=== PATIENT | male | born 1935 | race Caucasian/White ===

== ENCOUNTER 2019-01-13 16:59 | Observation (INO) | payer MEDICARE, OTHER ==
[~2019-01-13] VITALS: Ht 172.7 cm; Wt 68.2 kg
[~2019-01-13 16:59] MED LIST: Z.0.LASIX20 MG; Z.0.VASOTEC20 MG
--- NOTE | 2019-01-13 18:33 | Diagnostic Imaging Report ---
CT BRAIN WO HISTORY: Fall COMPARISON: Report from head CT dated 07/08/2015 (images not available at time of dictation) Technique: Noncontrast axial scans were obtained from skull base to the vertex. Coronal and sagittal reconstructions obtained from the axial data. One or more of the following dose reduction techniques were used: Automated exposure control, adjustment of the mA and/or kV according to patient size, and/or utilization of iterative reconstruction technique. DISCUSSION: Scalp/Skull: Unremarkable. Brain sulci: Mildly prominent. Ventricles: Compensatory dilatation. Extra-axial spaces: No masses or fluid collections. Carotid and vertebral artery calcifications are present. Parenchyma: Mild bilateral deep white matter hypodensity is likely chronic microvascular ischemic change. 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 Otherwise, no masses, hemorrhage, or large vascular territory acute infarct. Dural sinuses: No abnormal densities. Sellar/Suprasellar region: Intact. Skull base: Intact. Incidental findings: Mild scattered paranasal sinus mucosal thickening is partially visualized. Both ocular lenses are thinned. IMPRESSION: 1. No acute intracranial abnormalities. 2. Mild supratentorial chronic microvascular ischemic change. Mild generalized cerebral volume loss. Signed by: Dr. Edward Flowers M.D. on 01/13/2019 6:30 PM
--- NOTE | 2019-01-13 18:41 | Diagnostic Imaging Report ---
CT CERVICAL SPINE WO HISTORY: Fall COMPARISON: Concurrent head CT TECHNIQUE: CT of the cervical spine without contrast. Sagittal and coronal reformations were created. One or more of the following dose reduction techniques were used: Automated exposure control, adjustment of the mA and/or kV according to patient size, and/or utilization of iterative reconstruction technique. FINDINGS: Mild bone demineralization limits evaluation. Cervical lordosis is straightened. Thoracic dextroscoliosis is partially visualized. No definite acute fracture or compression deformity is seen. The craniocervical junction is intact. No gross spinal canal masses are seen. The paravertebral and paraspinal soft tissues are unremarkable. Multilevel spondylosis is advanced at C5-C6 and C6-C7. The C3 and C4 vertebral bodies are fused. Prominent multilevel bilateral facet arthrosis is also present. There is associated minimal grade 1 anterolisthesis of C4 on C5, C6 on C7, C7 on T1. Prominent bilateral carotid bulb calcifications are present. There is a small partially calcified left thyroid nodule. IMPRESSION: 1. No acute osseous abnormalities. 2. Multilevel spondylosis, advanced at C5-C6 and C6-C7. 3. Prominent multilevel bilateral facet arthrosis. Associated minimal grade 1 anterolisthesis of C4 on C5, C6 on C7, and C7 on T1. Signed by: Dr. Edward Flowers M.D. on 01/13/2019 6:38 PM
[2019-01-13 18:46] LABS: BASOPHILS % 0.5 % (0.0-1.0); EOSINOPHILS # (AUTO) 0.2 (0.0-0.4); EOSINOPHILS % 3.5 % (0.0-6.0); HEMATOCRIT 42.1 % (38.2-49.6); HEMOGLOBIN 14.2 g/dL (14.0-18.0); LYMPHOCYTES # (AUTO) 1.8 (1.0-3.2); LYMPHOCYTES % 30.7 % (18.0-39.1); MEAN CORPUSCULAR HEMOGLOBIN 32.3 pg (28-32); MEAN CORPUSCULAR HGB CONC 33.7 g/dL (31-35); MEAN CORPUSCULAR VOLUME 95.7 fL (81-99); MONOCYTES # (AUTO) 0.7 (0.2-0.8); MONOCYTES % 11.1 % (4.4-11.3); NEUTROPHILS # (AUTO) 3.2 (2.1-6.9); NEUTROPHILS % 53.9 % (38.7-80.0); PLATELET COUNT 193 x10e3/uL (140-360); RED CELL DISTRIBUTION WIDTH 12.6 % (11.7-14.4)
[2019-01-13 18:56] LABS: INR 1.08; PROTHROMBIN TIME 14.5 seconds (11.9-14.5)
[2019-01-13 18:57] LABS: PARTIAL THROMBOPLASTIN TIME 36.2 seconds (23.8-35.5)
--- NOTE | 2019-01-13 19:02 | Diagnostic Imaging Report ---
EXAMINATION: CHEST SINGLE (PORTABLE) INDICATION: ^ERMD ORDER ^[id number] ^1745 ^Y COMPARISON: None FINDINGS: AP view TUBES and LINES: None. LUNGS: Lungs are well inflated. Central vascular congestion and mild interstitial edema. PLEURA: No pleural effusion or pneumothorax. HEART AND MEDIASTINUM: The cardiomediastinal silhouette is unremarkable. Aorta is calcified and mildly tortuous. BONES AND SOFT TISSUES: No acute osseous lesion. Soft tissues are unremarkable. UPPER ABDOMEN: No free air under the diaphragm. IMPRESSION: Central vascular congestion and mild interstitial edema. Signed by: Dr. Warner Galeano MD on 01/13/2019 6:59 PM
[2019-01-13 19:04] LABS: ALBUMIN 2.9 g/dL (3.5-5.0); ALBUMIN/GLOBULIN RATIO 0.7 (0.8-2.0); ANION GAP 12.7 mmol/L (8-16); CALCIUM 7.8 mg/dL (8.4-10.2); CREATININE, SERUM 1.17 mg/dL (0.72-1.25); POTASSIUM 3.7 mmol/L (3.5-5.1)
[2019-01-13 19:12] LABS: CREATINE KINASE MB 1.1 ng/mL (0-5.0)
[2019-01-13 19:42] LABS: EOSINOPHILS % (MANUAL) 3 % (0-7); LYMPHOCYTES % (MANUAL) 29 % (19-48); MONOCYTES % (MANUAL) 12 % (3.4-9.0); NEUTROPHILS % (MANUAL) 50 % (40-74); RBC MORPHOLOGY COMMENT NORMAL
[2019-01-13 19:43] LABS: PLATELET ESTIMATE ADEQUATE; PLATELET MORPHOLOGY COMMENT NORMAL
--- OUTSIDE RECORDS SUMMARY | 2019-01-13 20:57 | XMS REPORT ---
Author Author [facility] Address Unknown Phone Unavailable Care Team Providers Care Document Improvement Specialist Name Role Phone Carmen COLES Unavailable Unavailable Problems This patient has no known problems. Allergies, Adverse Reactions, Alerts This patient has no known allergies or adverse reactions. Medications This patient has no known medications. Results Test Description Test Time Test Comments Text Results Atomic Results Result Comments CHEST SINGLE (PORTABLE) 2019-01-13 18:58:00 [place] [address] Patient Name: AIDAN GILL MR #: [id number] : 1935 Age/Sex: 83/M Req #: [id number] Adm Physician: Ordered by: COLLEEN FREEMAN STRATEGY LEAD Report #: [id number] Location: ER Room/Bed: Procedure: [id number] DX/CHEST SINGLE (PORTABLE) Exam Date: 01/13/19 Exam Time: 1745 REPORT STATUS: Signed EXAMINATION: CHEST SINGLE (PORTABLE) IN DICATION: ERMD ORDER [id number] 1745 Y COMPARISON: None FINDINGS: AP view TUBES and LINES: None. LUNGS: Lungs are well inflated. Central vascular congestion and mild interstitial edema. PLEURA: No pleural effusion or pneumothorax. HEART AND MEDIASTINUM: The cardiomediastinal silhouette is unremarkable. Aorta is calcified and mild ly tortuous. BONES AND SOFT TISSUES: No acute osseous lesion. Soft tissues are unremarkable. UPPER ABDOMEN: No free air under the diaphragm. IMPRESSION: Central vascular congestion and mild interstitial edema. Signed by: Dr. Warner Fajardo MD on 01/13/2019 6:59 PM Dictated By: WARNER FAJARDO MD 58 Transcribed By: SALVADOR on 01/13/191858 COPY TO: COLLEEN FREEMAN STRATEGY LEAD CT CERVICAL SPINE WO 2019-01-13 18:30:00 [place] [address] Patient Name: AIDAN GILL MR #: [id number] : 1935 Age/Sex: 83/M Req #: [id number] Adm Physician: Ordered by: COLLEEN FREEMAN NP Report #: [id number] Location: ER Room/Bed: Procedure: [id number] CT/CT CERVICAL SPINE WO Exam Date: 01/13/19 Exam Time: 1745 REPORT STATUS: Signed CT CERVICAL SPINE WO HISTORY: Fall COMPARI SON: Concurrent head CT TECHNIQUE: CT of the cervical spine without contrast. Sagittal and coronal reformations were created. One or more of the following dose reduction techniques were used: Automated exposure control, adjustment of the mA and/or kV according to patient size, and/or utilization of iterative reconstruction technique. FINDINGS: Mild bone demineralization limits evaluation. Cervical lordosis is straightened. Thoracic dextroscoliosis is partially visualized. No definite acute fracture or compression deformity is seen. The craniocervical junction is intact. No gross spinal canal masses are seen. The paravertebral and paraspinal soft tissues are unremarkable. Multilevel spondylosis is advanced at C5-C6 and C6-C7. The C3 and C4 vertebral bodies are fused. Prominent multilevel bilateral facet arthrosis is also present. There is associated minimal grade 1 anterolisthesis of C4 on C5, C6 on C7, C7 on T1. Prominent bilateral carotid bulb calcifications are present. There is a small partially calcified left thyroid nodule. IMPRESSION: 1. No acute osseous abnormalities. 2. Multilevel spondylosis, advanced at C5-C6 and C6- C7. 3. Prominent multilevel bilateral facet arthrosis. Associated minimal grade 1 anterolisthesis of C4 on C5, C6 on C7, and C7 on T1. Signed by: Dr. Edward Flowers M.D. on 01/13/2019 6:38 PM Dictated By: EDWARD FLOWERS MD 37 Transcribed By: SALVADOR on 01/13/191837 COPY TO: COLLEEN FREEMAN NP CT BRAIN WO 2019-01-13 18:25:00 [place] [address] Patient Name: AIDAN GILL MR #: [id number] : 1935 Age/Sex: 83/M Req #: [id number] Adm Physician: Ordered by: COLLEEN FREEMAN STRATEGY LEAD Report #: [id number] Location: ER Room/Bed: Procedure: [id number] CT/CT BRAIN WO Exam Date: 01/13/19 Exam Time: 1745 REPORT STATUS: Signed CT BRAIN WO HISTORY: Fall COMPARISON: Report from head CT dated 07/08/2015 (images not available at time of dictation) Technique: Noncontrast axial scans were obtained from skull base to the vertex. Coronal and sagittal reconstructions obtained from the axial data. One or more of the following dose reduction techniques were used: Automated exposure control, adjustment of the mA and/or kV according to patient size, and/or utilization of iterative reconstruction technique. DISCUSSION: Scalp/Skull: Unremarkable. Brain sulci: Mildly prominent. Ventricles: Compensatory dilatation. Extra-axial spaces: No masses or fluid collections. Carotid and vertebral artery calcifications are present. Parenchyma: Mild bilateral deep white matter hypodensity is likely chronic microvascular ischemic change. 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 Otherwise, no masses, hemorrhage, or large vascular territory acute infarct. Dural sinuses: No abnormal densities. Sellar/Suprasellar region: Intact. Skull base: Intact. Incidental findings: Mild scattered paranasal sinus mucosal thickening is partially visualized. Both ocular lenses are thinned. IMPRESSION: 1. No acute intracranial abnormalities. 2. Mild supratentorial chronic microvascular ischemic change. Mild generalized cerebral volume loss. Signed by: Dr. Edward Flowers M.D. on 01/13/2019 6:30 PM Dictated By: EDWARD FLOWERS MD 29 Transcribed By: SALVADOR on 01/13/191829 COPY TO: COLLEEN FREEMAN NP
[2019-01-13 21:56] VITALS: BP 191/77
--- NOTE | 2019-01-13 21:56 | NUR ---
Received patient from the Emergency Room via stretcher accompanied by his son and E.R. staff. Patient is alert with confusion. Can ambulate and transfer with supervision. Patient was made comfortable in bed. Oriented to the room. side rails up. Bed alarm on. Call light within reached.
[2019-01-13] MEDS ORDERED: FLUDROCORTISON0.1 MG PO (22:13)
[2019-01-13] MEDS ORDERED: NAMENDA10 MG PO (22:13)
[2019-01-13] MEDS ORDERED: POTASSIUM CHLO10 ME1 PO (22:13)
[2019-01-13] MEDS ORDERED: EXELON1 EAC1 TD (22:13)
[2019-01-14] VITALS (11 sets, daily range): BP systolic 134–191; BP diastolic 62–82
[2019-01-14] MEDS ORDERED: ASPIR 8181 MG PO (08:09)
[2019-01-14] MEDS ORDERED: CENTRUM COMPLE1 EACH PO (08:10)
[2019-01-14] MEDS ORDERED: FOLIC ACID1 MG PO (08:10)
[2019-01-14] MEDS ORDERED: METAMUCIL FIBE3.4 GM PO (08:10)
[2019-01-14 10:39] LABS: CLARITY,URINE HAZY (CLEAR); COLOR,URINE YELLOW (YELLOW)
[2019-01-14 10:40] LABS: BILIRUBIN,URINE NEGATIVE (NEGATIVE); KETONES,URINE 2+ (NEGATIVE); LEUKOCYTE ESTERASE ,URINE NEGATIVE (NEGATIVE); NITRITE,URINE NEGATIVE (NEGATIVE); PROTEIN,URINE DIPSTICK 1+ (NEGATIVE); URINE UROBILINOGEN 0.2 mg/dL (0.2 - 1)
[2019-01-14 10:41] LABS: BACTERIA,URINE FEW /HPF; EPITHELIAL CELLS,URINE FEW /LPF; WBC,URINE (MAN) 0-5 /HPF (0-5)
--- NOTE | 2019-01-14 10:48 | NUR ---
NOTIFIED BY SON, SUSAN THAT HE ADMINISTERED NAMENDA, POTASSIUM, AND EXELON PATCH TO PT THOSE ARE HIS REGULAR HOME MEDICATIONS.
[2019-01-14] MEDS ORDERED: ONDANSETRON HCL INJ 2MG/ML 2ML 2 MG/ML VIAL IV PRN (12:15)
[2019-01-14] MEDS ORDERED: ACETAMINOPHEN 325 MG TAB PO PRN (12:15)
--- NOTE | 2019-01-14 13:00 | NUR ---
SPOKE TO DR. GEORGE NOTIFIED REGARDING NEW CONSULT.
--- NOTE | 2019-01-14 13:12 | NUR ---
NOTIFIED DR. CHAVARRIA OF [facility] WILL SEE PT LATER TODAY.
[2019-01-14 15:33] LABS: BASOPHILS % 0.4 % (0.0-1.0); EOSINOPHILS # (AUTO) 0.1 (0.0-0.4); EOSINOPHILS % 2.1 % (0.0-6.0); HEMATOCRIT 39.2 % (38.2-49.6); HEMOGLOBIN 13.2 g/dL (14.0-18.0); LYMPHOCYTES # (AUTO) 1.4 (1.0-3.2); LYMPHOCYTES % 24.5 % (18.0-39.1); MEAN CORPUSCULAR HEMOGLOBIN 31.7 pg (28-32); MEAN CORPUSCULAR HGB CONC 33.7 g/dL (31-35); MEAN CORPUSCULAR VOLUME 94.2 fL (81-99); MONOCYTES # (AUTO) 0.4 (0.2-0.8); MONOCYTES % 7.3 % (4.4-11.3); NEUTROPHILS # (AUTO) 3.7 (2.1-6.9); NEUTROPHILS % 65.5 % (38.7-80.0); PLATELET COUNT 205 x10e3/uL (140-360); RED BLOOD COUNT 4.16 x10e6/uL (4.3-5.7); RED CELL DISTRIBUTION WIDTH 12.3 % (11.7-14.4)
--- NOTE | 2019-01-14 15:36 | Consultation ---
DATE OF CONSULTATION: Cardiology Consultation CONSULTING PHYSICIAN: Dr. Jordan. REASON FOR CONSULTATION: Syncope. 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 However, has stage 5 Alzheimer and is not able to provide most of the medical information; however per the son, has been feeling well up until two weeks ago where he experienced his first syncope episode, syncope episode occurred while standing. However, he could tell his care provider that he does not feel well prior to the syncope episode. For this reason, he was seen by his PCP. PCP initiated Florinef at 0.1 mg daily and continued to take that medication for about a week. However, had subsequent hypertension secondary to the medication. For that reason, he was asked to cut the medication in half. After starting half of the Florinef, he experienced two syncope episodes about 12 hours later. These two syncope episodes are reported to be both while he was standing, one of the more recently while he was in the restroom. He has no complaints at this time moment. He states he feels well and he just knows he is at the hospital. He is not able to provide reliable medical information. PAST FAMILY HISTORY: Per son, positive for type 1 diabetes mellitus. PAST MEDICAL HISTORY: Alzheimer. REVIEW OF SYSTEMS: Negative except as mentioned above. PHYSICAL EXAMINATION: VITAL SIGNS: Temperature 96.5, pulse 63, respiratory rate 20, blood pressure 142/64, oxygen saturation 95% on room air. GENERAL: Alert and oriented x1, resting comfortably in bed. Does not appear to be in any acute distress. NECK: Supple. No carotid bruits auscultated. No JVD. LUNGS: Clear to auscultation throughout. No wheezing. No rhonchi or crackles. CARDIOVASCULAR: Regular rate and rhythm. Normal S1, S2. No gallops. No murmurs. ABDOMEN: Soft, nontender. LOWER EXTREMITIES: No edema. CARDIOVASCULAR MEDICATIONS: 30 mg of Lovenox subcu daily, aspirin 81 mg p.o. daily. LABORATORY DATA: From yesterday; WBC 5.93, hemoglobin 14.2, hematocrit 42.2, platelets 193. Sodium 141, potassium 3.7, BUN 19, creatinine 1.17. AST 30, ALT 16, alkaline phosphatase 44, BNP 126.7, INR 1.08, PT 14.5, PTT 36.2. Chest x-ray on admission with central vascular congestion and mild interstitial edema noted. Brain CT with no acute intracranial abnormalities. Mild supratentorial chronic microvascular ischemic change, mild generalized cerebral volume loss. TELEMETRY: Sinus rhythm. IMPRESSION: 1. Vasovagal syncope. 2. Hypotension. 3. Alzheimer. RECOMMENDATION: Obtain echocardiogram and carotid Doppler. Also check thyroid function. The patient may need ambulatory telemetry monitoring. For now, keep in bed. Continue the above-listed cardiac medications. Fluid consumption 2 to 3 L daily. We will monitor this patient very closely. Thank you for this consultation, Dr. Jordan. Dictated by Mary Stewart, JALEN Sampson Montez MD J[facility]/DUANE /[id number]
[2019-01-14 15:52] LABS: ANION GAP 12.6 mmol/L (8-16); BLOOD UREA NITROGEN 19 mg/dL (7-26); BUN/CREATININE RATIO 19 (6-25); CALCIUM 7.6 mg/dL (8.4-10.2); CARBON DIOXIDE 25 mmol/L (22-29); CHLORIDE 106 mmol/L (98-107); EST GLOMERULAR FILTRATION RATE > 60 ML/MIN (60-); GLUCOSE 123 mg/dL (74-118); POTASSIUM 3.6 mmol/L (3.5-5.1); SODIUM 140 mmol/L (136-145)
[2019-01-14] MEDS: ENOXAPARIN 30 MG/0.3 ML SYR SC SCH (16:33)
[2019-01-14] MEDS: MEMANTINE 10 MG TAB PO SCH (16:33)
[2019-01-14] MEDS: SODIUM CHLORIDE 0.9% 1000ML 1,000 ML IV SCH (18:53)
--- NOTE | 2019-01-14 19:43 | NUR ---
Received change of shift report from AM nurse. Rounds completed. Patient in bed in sitting position with no c/o at this time.
--- NOTE | 2019-01-14 19:47 | History and Physical ---
CHIEF COMPLAINT: Syncopal episodes. HISTORY OF PRESENT ILLNESS: An 83-year-old male with known history of Alzheimer's dementia and questionable orthostatic hypotension, who was just recently diagnosed with acute bronchitis being treated with IV Rocephin and antibiotics, presents now to the ED with a syncopal episode that has been ongoing over the last several days. The patient's son is at bedside and full history was given by the son. According to the son, approximately like a week ago, the father was getting up, walking and then he passed out, at that time fell over and lost consciousness for about 16 seconds according to the son. No prodromal effects of slurred speech, facial droop, weakness anywhere, no palpitations or any chest wound has occurred. At that time, they talked to the primary care doctor, thought it was orthostatic in nature and was started on Florinef. The patient also had another episode of syncopal episode yesterday, in which he passed out and lost consciousness again, that lasted from another 15-20 seconds, again no prodromal effects prior to this occurring and came to the ER for further evaluation and management. No reports of any recent sickness, cough, congestion. He was treated for acute bronchitis according to the family at bedside by his PCP. The patient seen and evaluated at bedside on the Medical floor, currently doing well with no complaints. His vital signs were stable when I evaluated him. REVIEW OF SYSTEMS: Pertinent positives: Syncopal episode, loss of consciousness. Pertinent negatives: Denies any chest pain, palpitation, nausea, vomiting, diarrhea, dysuria, hematuria, frequency, urgency, lightheadedness, dizziness, abdominal pain, headaches, shortness of breath, cough, congestion, fever, or any other complaints. The rest of the 14-point review of systems have been reviewed with the patient and are negative. ALLERGIES: CODEINE, HYDROCODONE, MIRTAZAPINE. HOME MEDICATIONS: Aspirin 81 mg daily, Florinef 0.1 mg daily, folic acid 1 mg daily, Namenda 10 mg p.o. b.i.d., potassium supplement, Exelon 13.3 mg one patch daily. PAST MEDICAL HISTORY: Alzheimer's dementia, questionable orthostatic hypotension in the past. SURGICAL HISTORY: Reports none. FAMILY HISTORY: Hypertension. SOCIAL HISTORY: No drugs. No alcohol. Does not smoke. Good social support, his son was at bedside. PHYSICAL EXAMINATION: VITAL SIGNS: Temperature 96.5, pulse is 63, respiratory rate is 20, blood pressure is 142/64, pulse ox 95% on room air. GENERAL: Not in acute distress. Alert and oriented x3. Cooperative on examination. HEENT: Head is normocephalic and atraumatic. Eyes; pupils are equal, round, and reactive to light bilaterally. Extraocular movements are intact bilaterally. Throat, no evidence of erythema or exudates in the posterior pharynx. Has poor dentition. NECK: Supple. Good range of motion. PULMONARY: Clear to auscultation bilaterally. No wheezing, no rales, no rhonchi, no crackles appreciated. CARDIOVASCULAR: Positive S1, S2. No murmurs, rubs, or gallops appreciated. ABDOMEN: Soft, nondistended, and nontender to palpation. Bowel sounds present. MUSCULOSKELETAL: Strength is 5/5 throughout. No evidence of any muscle deficits on examination. No weakness appreciated. NEUROLOGICAL: Cranial nerves II through XII grossly intact. No evidence of any neurological deficits on exam. SKIN: Intact. Warm to touch. Good cap refill. PSYCHIATRIC: Normal affect and mood. EXTREMITIES: No edema. Good range of motion throughout LABORATORY DATA: Labs show white count 5.9, hemoglobin 14, hematocrit of 42, platelets of 193. Coagulation; PT 14, INR 1, PTT 36.2. Chemistry; sodium 141, potassium 3.7, chloride is 106, bicarb 26, anion gap is 12, BUN is 19, creatinine 1.1, glucose 93, calcium 7.8. Total bilirubin is 0.7, AST 30, ALT 16, alkaline phosphatase 44. Troponin is 0.010. BNP 126. Albumin 2.9. Urinalysis; 2+ blood, 2+ ketones, 1+ protein, 11-20 rbc's, no wbc's, no leukocyte esterase, no nitrites. Urine cultures are pending. IMAGING STUDIES: Chest x-ray shows some central vascular congestion, mild interstitial edema. CT cervical spine shows no acute findings. Shows evidence of osteoarthritis, multilevel. CT brain, no acute intracranial abnormalities. IMPRESSION: 1. Syncopal episode. 2. History of orthostatic hypotension. 3. Alzheimer's dementia. PLAN: At this time, I will go ahead and order a 2D echo and carotid ultrasound to be read by Cardiology. Cardiology has been consulted as well. Continue cardiac telemetry. Also consult with Neurology. Carotid ultrasound, MRI of the brain has been ordered as well. a.m. labs. We will also get orthostatic blood pressure readings as well. Resume same home medications. Put on Lovenox for DVT prophylaxis. We will also get a.m. labs. I discussed plan of care with son at bedside including patient with nursing staff. MD KATELYNN Brasher/MODL /[id number]
--- NOTE | 2019-01-14 22:13 | NUR ---
Received report from Christina pablo [facility] ER. #[phone]. Addendum: 01/14/19 at 2305 by Briana Webb RN error wrong patient
--- NOTE | 2019-01-14 22:38 | NUR ---
Patient arrived to floor via stretcher. Addendum: 01/14/19 at 2305 by Briana Webb RN error wrong patient
--- NOTE | 2019-01-14 22:41 | Consultation ---
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 At approximately 0300 hours on January 13, 2019, the patient was using the restroom with the aid of his . While washing his hands, Dr. Neff was observed to have shaking in his arms and legs. The patient then lost consciousness. Dr. Neff fell to the ground, hitting his head on a wooden door frame. While on the ground, there was no stiffening or shaking of the arms and legs. There was no tongue biting. The patient's does endorse both bladder and bowel incontinence. The duration of unconsciousness lasted for approximately 30 seconds. According to the , as soon as she lifted the patient's legs in the air, the patient regained consciousness. When he regained consciousness, Dr. Neff recognized his as well as his bathroom, but was uncertain as to why he was lying on the floor. Prior to the event described above, Dr. Neff reported possible dizziness, which is further described as a lightheaded sensation. Otherwise, he does not recall experiencing chest pain or tightness, palpitations, shortness of breath, numbness or tingling, or an epigastric rising sensation. According to the patient's , Dr. Neff experienced similar symptoms approximately 2 weeks ago. On the advice of his primary care physician, Dr. Neff presented to the Emergency Center at [facility] on the evening of January 13, 2019, for further evaluation of his symptoms. Upon arrival in the emergency room, the patient was afebrile with a blood pressure of 142/70 mmHg and a pulse of 71 beats per minute. His neurological examination was significant for altered mental status. However, the patient's family reported Dr. Neff was at his cognitive baseline. No other deficits were noted. While in the Emergency Center, the patient underwent a CT of the brain without contrast, which did not reveal evidence of recent large territorial ischemia or hemorrhage. Dr. Neff was admitted to [facility] under observation status for further evaluation and treatment of his symptoms. There is no known history of febrile or other seizures. There is no known family history of seizures. There is no known prior head trauma or meningitis/encephalitis. REVIEW OF SYSTEMS: Syncope versus seizure, dizziness, which is further described as lightheadedness, otherwise a 12-point review of systems is negative. PAST MEDICAL HISTORY: Hypotension, dementia, presumably of the Alzheimer's type. PAST SURGICAL HISTORY: Bilateral cataract removal. PAST HOSPITALIZATIONS: None. FAMILY MEDICAL HISTORY: The patient's paternal and maternal grandparents are . Their medical histories are unknown. The patient's father is . He in his sleep, cause unknown. Dr. Neff' mother had diabetes mellitus. The patient has 1 sibling, a sister, who is alive and has Alzheimer's disease as well. Dr. Neff has 2 sons, both of whom are alive and healthy. SOCIAL HISTORY: Dr. Neff is and lives with his . 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 There is no reported current or prior tobacco, alcohol, or recreational drug use. HOME MEDICATIONS: 1. Aspirin 81 mg by mouth daily. 2. Fludrocortisone 0.1 mg one-half tablet by mouth daily. 3. Folic acid 1 mg by mouth daily. 4. Memantine 10 mg by mouth twice daily. 5. Multivitamin 1 tablet by mouth daily. 6. Potassium chloride 10 mEq by mouth daily. 7. Metamucil 1 packet by mouth daily. 8. Rivastigmine 13.3 mg patch applied topically daily. ALLERGIES: CODEINE, HYDROCODONE, MIRTAZAPINE. NO KNOWN FOOD ALLERGIES. NO KNOWN ALLERGIES TO LATEX. NO KNOWN ALLERGIES TO IODINE OR OTHER CONTRAST MATERIALS. PHYSICAL EXAMINATION: VITAL SIGNS: Height 68 inches, weight 144 pounds, BMI 21.9 kg/m2, blood pressure 142/64 mmHg, pulse 63 beats per minute, respiratory rate 20 breaths per minute, oxygen saturation 95% on room air. GENERAL: The patient is awake and alert, does not appear distress. HEENT: Normocephalic, atraumatic. Pupils are surgical. Moist mucous membranes. NECK: Supple. No appreciable thyromegaly. No appreciable carotid bruits. CARDIOVASCULAR: S1 and S2, regular rate and rhythm. No murmurs, rubs, or gallops. RESPIRATORY: Clear to auscultation bilaterally. No wheezes, rhonchi, or rales. EXTREMITIES: The skin is warm and dry. No clubbing, cyanosis, or edema. The posterior tibial and dorsalis pedis pulses are 1+ and symmetric. SKIN: No rashes or lesions. NEUROLOGIC: Memory/Attention: The patient is awake and alert, oriented to person only. Cranial nerves: Cranial nerve I - not tested. Cranial nerve II, III, IV, and - pupils are surgical. Extraocular movements intact. No nystagmus. Cranial nerve V - sensation to light touch is intact in the bilateral V1 through V3 distributions. Strength in the temporalis and masseter muscles is within normal limits. Cranial nerve VII - the face is symmetric as are all facial movements. Strength is within normal limits. Cranial nerve VIII - hearing is diminished to finger rub bilaterally. Cranial nerve IX, X - the soft palate elevates equally and symmetrically. Cranial nerve XI - normal strength of the bilateral sternocleidomastoid and trapezius muscles. Cranial nerve XII - the tongue protrudes midline and moves symmetrically from [id number]. Strength: Bulk is diminished throughout. Dr. Neff has difficulty participating in a formal assessment of strength. He moves all extremities equally and symmetrically. Strength is grossly 4/5 at least. Tone is normal. DTRs: Deep tendon reflexes are 1+ and symmetric at the triceps, biceps, brachioradialis, and patellas. Deep tendon reflexes are absent and symmetric at the Achilles. Plantar responses are flexor bilaterally. Sensation: Sensation is intact to light touch in both arms and both legs. Cerebellar: Unable to assess secondary to the patient not understanding the instructions for [id number] and heel-hamilton movements. Gait: Deferred. Speech: Spontaneous speech is mildly dysarthric without aphasia. Repetition is intact. Involuntary Movements: None. Pronator Drift: None. LABORATORY DATA: A comprehensive metabolic panel is significant for an estimated GFR of 59, calcium is 78, albumin of 2.9, and globulin of 4.0. B-natriuretic peptide 126.7. The CBC with differential and platelets is unremarkable. PT 14.5, INR 1.08, PTT 36.2. The urinalysis revealed hazy urine with 1+ protein, 2+ ketones, 2+ blood, 11 to 20 red blood cells. A urine culture is pending. DIAGNOSTIC STUDIES: 1. Electrocardiogram, 01/13/2019: Normal sinus rhythm at 62 beats per minute. 2. Chest x-ray, 01/13/2019: Central vascular congestion and mild interstitial edema. 3. CT of the cervical spine, 01/13/2019: No acute osseous abnormalities. Multilevel spondylosis, advanced at C5-C6 and C6-C7. Prominent multilevel bilateral facet arthrosis. Associated minimal grade 1 anterolisthesis of C4 on C5, C6 on C7, and C7 on T1. 4. CT of the brain without contrast, 01/13/2019: On my review, there is no evidence of recent large territorial ischemia, hemorrhage, mass, or mass effect. 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 There is diffuse cerebral atrophy with compensatory dilatation of the ventricles, appropriate for the patient's age. Their findings compatible with [id number]-[id number] chronic small-vessel ischemic disease. 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 Other than cognitive deficits, the patient's neurological examination is nonfocal. His laboratory data and other diagnostic studies have been reviewed and are documented above. There are elements of the patient's history, which raise concerns for seizure. Those include: Shaking of the arms prior to loss of consciousness, duration of loss of consciousness, bladder and bowel incontinence associated with loss of consciousness. Due to these elements of the patient's history, further evaluation will be ordered as follows: 1. For seizures, an MRI of the brain without contrast will be ordered to evaluate for structural anomalies, which may give rise to seizures. A routine EEG will be ordered to evaluate for abnormal electrical activity, which may give rise to seizures. 2. For dementia, treatment with the patient's home medications of Rivastigmine 9.5 mg per 24-hour patch, apply one patch topically daily and memantine 10 mg by mouth twice daily will be continued. 3. Defer treatment of the remaining medical comorbidities to the primary and other services following the patient. Thank you for this consultation. I will continue to follow the patient while he remains in the hospital. TIME SPENT: 50 minutes. Violeta Cross MD CP/MODL /[id number] MTDD
[2019-01-15] VITALS (8 sets, daily range): BP systolic 139–186; BP diastolic 72–83
--- NOTE | 2019-01-15 | NUR ---
Patient denies pain at this time. AAOx1-2 with period of forgetfullness. Patient up out of bed to the restroom. Pt insist on walking to the bathroom. Assissted to bathroom. Son at the bedside.
[2019-01-15] MEDS: SODIUM CHLORIDE 0.9% 1000ML 1,000 ML IV SCH ×2 (05:04→21:46)
[2019-01-15 05:46] LABS: BASOPHILS % 0.5 % (0.0-1.0); EOSINOPHILS # (AUTO) 0.3 (0.0-0.4); EOSINOPHILS % 4.9 % (0.0-6.0); HEMOGLOBIN 12.7 g/dL (14.0-18.0); LYMPHOCYTES # (AUTO) 1.8 (1.0-3.2); LYMPHOCYTES % 32.4 % (18.0-39.1); MEAN CORPUSCULAR HEMOGLOBIN 31.4 pg (28-32); MEAN CORPUSCULAR HGB CONC 33.4 g/dL (31-35); MEAN CORPUSCULAR VOLUME 93.8 fL (81-99); MONOCYTES # (AUTO) 0.5 (0.2-0.8); MONOCYTES % 8.9 % (4.4-11.3); NEUTROPHILS # (AUTO) 2.9 (2.1-6.9); NEUTROPHILS % 53.1 % (38.7-80.0); PLATELET COUNT 199 x10e3/uL (140-360); RED BLOOD COUNT 4.05 x10e6/uL (4.3-5.7); RED CELL DISTRIBUTION WIDTH 12.3 % (11.7-14.4)
--- NOTE | 2019-01-15 05:56 | NUR ---
Patient in bed with no c/o at this time. Continue monitor.
[2019-01-15 06:09] LABS: ANION GAP 11.5 mmol/L (8-16); BLOOD UREA NITROGEN 15 mg/dL (7-26); BUN/CREATININE RATIO 16 (6-25); CALCIUM 7.3 mg/dL (8.4-10.2); CARBON DIOXIDE 24 mmol/L (22-29); CHLORIDE 110 mmol/L (98-107); CREATININE, SERUM 0.91 mg/dL (0.72-1.25); EST GLOMERULAR FILTRATION RATE > 60 ML/MIN (60-); GLUCOSE 82 mg/dL (74-118); POTASSIUM 3.5 mmol/L (3.5-5.1); SODIUM 142 mmol/L (136-145)
[2019-01-15] MEDS: RIVASTIGMINE TRANSDERMAL 9.5MG/24HOURS PATCH TD SCH ×2 (09:00→16:00)
[2019-01-15] MEDS ORDERED: FLUDROCORTISONE ACETATE 0.1 MG TAB PO SCH (09:00)
[2019-01-15] MEDS: FOLIC ACID 1 MG TAB PO SCH (09:21)
[2019-01-15] MEDS: MEMANTINE 10 MG TAB PO SCH ×2 (09:22→17:00)
[2019-01-15] MEDS: FLUDROCORTISONE ACETATE 0.1 MG TAB PO SCH (09:22)
[2019-01-15] MEDS: ASPIRIN 81 MG CHEW TAB PO SCH (09:22)
--- NOTE | 2019-01-15 13:20 | NUR ---
DISCONTINUE TELEMETRY FOR MRI
--- NOTE | 2019-01-15 15:00 | NUR ---
Patient returned from MRI placed back on telemetry. #[id number]
--- NOTE | 2019-01-15 15:58 | Diagnostic Imaging Report ---
History: Passed out Comparison studies: CT head 01/13/2019 Technique: Sagittal T2; axial DWI, FLAIR, MPGR, T1, Coronal FLAIR. Intravenous contrast: None Findings: Scalp: Normal in signal . No masses . Bone marrow: Normal in signal intensity. Extra-axial: No masses, no fluid collections. Brain sulci: Mildly prominent. Ventricles: Mildly prominent . No hydrocephalus . Parenchyma: Small T2/FLAIR hyperintensities of the periventricular and deep white matter No masses, hemorrhage, acute or chronic vascular insults. Suprasellar region: No abnormalities. Craniocervical junction: No abnormalities. Patent foramen magnum. No Chiari one malformation. Vessels: Normal flow-voids in the arteries and sinuses. Bilateral cataract surgery changes. IMPRESSION: 1. No acute abnormalities. 2. Mild chronic microvascular ischemic changes of the white matter and diffuse volume loss Signed by: DR Segundo Quintero M.D. on 01/15/2019 3:54 PM
--- NOTE | 2019-01-15 16:12 | NUR ---
CM SPOKE TO PHYSICAL THERAPY REGARDING SAFE DISCHARGE PLAN. PT RECOMMENDED HOME HEALTH SERVICES ONLY IF PATIENT IS ABLE TO HAVE 24 HR/DAY SUPPORT AT HOME. PATIENT SON IS IN THE PROCESS OF HIRING A CAREGIVER ABLE TO DELIVER THOSE SERVICES. PATIENT DISCHARGE PLAN AT THIS TIME: HOME HEALTH WITH PT/ OT EVAL AND SN EVAL WITH ROLLING WALKER. PENDING ORDER FROM DR. JULIO.
--- NOTE | 2019-01-15 17:16 | Progress Note ---
DATE: 01/15/2019 Medicine Progress Note SUBJECTIVE: The patient is doing well today at baseline. He was sitting in a chair, eating his lunch. MRI of the brain to be done later today. EEG is performed, pending results. Discussed plan of care with son at bedside with nurse present. PHYSICAL EXAMINATION: VITAL SIGNS: Temperature is 95.8, pulse 71, respiratory rate is 18, blood pressure 139/72, pulse ox 95% on room air. GENERAL: Not in acute distress. Alert and oriented x3. Cooperative on examination. HEENT: Head is normocephalic and atraumatic. Eyes; pupils are equal, round, and reactive to light bilaterally. Extraocular movements are intact bilaterally. Throat, no evidence of erythema or exudates in the posterior pharynx. Has poor dentition. NECK: Supple. Good range of motion. PULMONARY: Clear to auscultation bilaterally. No wheezing, no rales, no rhonchi, no crackles appreciated. CARDIOVASCULAR: Positive S1, S2. No murmurs, rubs, or gallops appreciated. ABDOMEN: Soft, nondistended, and nontender to palpation. Bowel sounds present. MUSCULOSKELETAL: Strength is 5/5 throughout. No evidence of any muscle deficits on examination. No weakness appreciated. NEUROLOGICAL: Cranial nerves II through XII grossly intact. No evidence of any neurological deficits on exam. The patient has baseline dementia. SKIN: Intact. Warm to touch. Good cap refill. PSYCHIATRIC: Baseline dementia. EXTREMITIES: No edema. Good range of motion throughout. LABORATORY DATA: Lab findings show white count 5.5, hemoglobin 12.7, hematocrit is 38, and platelets of 199. Coagulation; PT 14, INR 1, PTT 36. Chemistry; sodium is 142, potassium 3.5, chloride 110, bicarb 24, anion gap of 11, BUN is 15, creatinine is 0.91, glucose is 82, calcium is 7.3. Urinalysis found to be negative. His vitamin B12 was greater than 2000. TSH is 2.1. MICROBIOLOGY: Urine cultures, no growth. IMAGING STUDIES: Nothing new. IMPRESSION: 1. Syncopal episode, multifactorial, could be secondary to orthostatic hypotension. 2. History of orthostatic hypotension. 3. Alzheimer's dementia. PLAN: At this time, carotid ultrasound is pending. MRI is pending later today. EEG has been performed, awaiting results. 2D echo, pending results. Cardiology and Neurology are following accordingly. Otherwise, blood pressure and vitals seem to be stable. Labs are reviewed and stable. At this time, await for the consultants. Continue to work with PT and OT. Likely discharge in the next 1-2 days. I have talked plan of care with the son at bedside with the nurse present. MD KATELYNN Brasher/DUANE /[id number]
[2019-01-15] MEDS: ENOXAPARIN 30 MG/0.3 ML SYR SC SCH (18:28)
--- NOTE | 2019-01-15 18:42 | Progress Note ---
DATE: 01/15/2019 Cardiology Progress Note SUBJECTIVE: The patient denies chest pain or shortness of breath. He just completed EEG. OBJECTIVE: VITAL SIGNS: Temperature 95.8 degrees, pulse 71, respiratory rate 18, blood pressure 168/73, oxygen saturation 95% on room air. GENERAL: An elderly man, in no acute distress, awake and alert. LUNGS: Clear to auscultation bilaterally. No wheezes or crackles. CARDIOVASCULAR: Normal rate, regular rhythm. No murmur. Normal S1, S2. ABDOMEN: Soft, nontender. EXTREMITIES: No edema. CARDIAC MEDICATIONS: Fludrocortisone 0.1 mg p.o. daily, aspirin 81 mg p.o. daily, and enoxaparin 30 mg subcu daily. LABORATORY DATA: WBC 5.53, hemoglobin 12.7, hematocrit 38, platelets 199. Sodium 142, potassium 3.5, chloride 110, CO2 of 24, BUN 15, creatinine 0.91. MRI brain; no acute abnormalities, mild chronic microvascular ischemic changes of the white matter and diffuse volume loss. TELEMETRY: Normal sinus rhythm. IMPRESSION: 1. Syncope, suspect orthostatic. 2. Question possible seizure. 3. Alzheimer's dementia. RECOMMENDATIONS: Continue current cardiac medications. Monitor the patient on telemetry. This can be held for MRI as necessary. Continue Florinef. Recommend compression stockings. We may need to tolerate supine hypertension for adequate blood pressure while the patient is standing. Thank you for this consult. We will continue to follow. Helene Natarajan MD ABS/MODL /[id number]
--- NOTE | 2019-01-15 19:20 | NUR ---
REPORT TAKEN FROM AM RN.WALKING ROUNDS DONE.STABLE CONDITION.BED ALARM ON.
--- NOTE | 2019-01-15 20:30 | NUR ---
PT REFUSED TO CHECK ORTHOSTATIC VITAL SIGNS.
[2019-01-15] MEDS ORDERED: POTASSIUM CHLORIDE 10MEQ EA PO SCH (21:00)
--- NOTE | 2019-01-15 21:07 | Electroencephalogram ---
DATE OF STUDY: 01/15/2019 REQUESTING PHYSICIAN: Violeta Cross MD HISTORY: This 83-year-old man with history of syncope versus seizure is having an EEG for evaluation of epileptiform activity. The patient is not taking any medications, which might affect the EEG. TECHNIQUE: This is a routine, portable EEG, recorded digitally, using the International 10/20 electrode placement system, and done in the inpatient setting with the patient awake and confused. The EEG is adequate for interpretation. DESCRIPTION: Poorly organized, poorly sustained 5-6 hertz activity is best seen symmetrically over the posterior head regions. Beta frequency activity is intermixed, probably the result of medication effect. No focal or epileptiform discharges are seen. Sleep is not recorded. Photic stimulation does produce a driving response. Hyperventilation is not performed. INTERPRETATION: This is an abnormal EEG due to diffuse slowing of background electrocortical activity compatible with a moderate generalized encephalopathy. No epileptiform discharges are seen. Clinical correlation is recommended. Violeta Cross MD CP/MODL /[id number] MTDD
--- NOTE | 2019-01-15 22:10 | NUR ---
ASSESSMENT DONE.NO RESP.DISTRESS.NO PAIN VOICED. WAS IN THE UNIT.BOX BLANK MACHINE OPERATOR HELPER IS WITH THE PT.BED ALARM IS ON.BED LOCKED AND IN LOWEST POSITION.PHONE AND CALL LIGHT WITHIN REACH.AMBULATORY WITH ASSISTANCE.ASSISTED TO USE REST ROOM.VOIDED.PT IS BACK TO BED.
[2019-01-16] VITALS: BP 186/96
--- NOTE | 2019-01-16 00:20 | NUR ---
PT IS AGITATED AFTER TAKING V/S.BP IS 200/86 MMOF HG.REFERENCE DATA EXPERT STATED THAT PT TRIED TO KICK HER.CALLED FOR HELP.I REACHED THE ROOM.TASIA SANCHEZ WAS THERE.PT PULLED OUT IV CANNULA.REFERENCE DATA EXPERT CONTACTED HIS SON.INFRONT OF HIS SON I CHECKED BP MANUALLY NOTED 186/86 .PAGED TO .PT'S SON STATED THAT "BP IS OK.USUALLY HAPPEN.DON'T CHECK VITALS @ 4AM.WAIT TO START IV AFTER 7AM.LET MY FATHER TAKE REST".APPLIED PRESSURE DRESSING ON IV SITE.
--- NOTE | 2019-01-16 03:00 | NUR ---
BED ALARM IS GOING OFF.ASSISTED THE PT TO USE BATH ROOM .PT IS BACK TO BED SAFELY AFTER VOIDED.
--- NOTE | 2019-01-16 06:14 | NUR ---
PT DOESN'T HAVE IV ACCESS.INFORMED TO AND WELLNESS AMBASSADOR.
--- NOTE | 2019-01-16 07:07 | NUR ---
REPORT GIVEN TO THE ONCOMING RN.WALKING ROUNDS DONE.STABLE CONDITION.
--- NOTE | 2019-01-16 07:31 | NUR ---
Received patient and walking rounds complete. Patient asleep at this time, no signs of distress. Son at bedside. Call light in reach, will continue to monitor.
[2019-01-16 07:52] VITALS: BP 188/74
--- NOTE | 2019-01-16 08:00 | NUR ---
Patient has no IV access at this time. Son wants father to rest at this time.
[2019-01-16] MEDS: RIVASTIGMINE TRANSDERMAL 9.5MG/24HOURS PATCH TD SCH (09:00)
[2019-01-16] MEDS: MEMANTINE 10 MG TAB PO SCH (09:00)
[2019-01-16] MEDS: FOLIC ACID 1 MG TAB PO SCH (09:45)
[2019-01-16] MEDS: ASPIRIN 81 MG CHEW TAB PO SCH (09:45)
[2019-01-16] MEDS: FLUDROCORTISONE ACETATE 0.1 MG TAB PO SCH (09:45)
[2019-01-16] MEDS: SODIUM CHLORIDE 0.9% 1000ML 1,000 ML IV SCH (10:30)
[2019-01-16 11:54] VITALS: BP 188/74
--- NOTE | 2019-01-16 12:00 | NUR ---
Patient A/O X2, even respirations on RA. Bowel sounds active, skin intact, no edema. Patient needs assistance with care. Cardiac diet at this time, tolerating well. Compression stockings bilaterally. No complaint of pain or discomfort at this time. Son at bedside. Bed in lowest position, wheels locked, side rails x2, call light in reach, will continue to monitor.
[2019-01-16 12:33] VITALS: BP_SYST 160; BP_SYST 161; BP_DIAS 75; BP_DIAS 81
[2019-01-16 12:34] VITALS: BP 168/77
--- NOTE | 2019-01-16 14:10 | NUR ---
Visit made by the Spiritual Care Department Pastoral Visitor, Agata Domínguez. PV provided pastoral presence, prayer, hospitality, and supportive listening. Pastoral Visitor informed pt/family of the scope of Maintenance Manager Services and availability. DEANA COLES Acute Dialysis Registered Nurse Spiritual Care Department O: [phone] Pager: [phone] ([phone] number calling from)
--- NOTE | 2019-01-16 15:10 | NUR ---
Patient discharged from facility. Patient and son gathered all personal belongings, discharge paperwork, and follow up information. Vital signs stable during discharge. No distress when leaving facility.
--- NOTE | 2019-01-16 17:43 | Progress Note ---
DATE: 01/16/2019 Cardiology Progress Note SUBJECTIVE: The patient denies complaints. OBJECTIVE: VITAL SIGNS: Temperature 96.8 degrees, pulse 70, respiratory rate 18, blood pressure 168/77, oxygen saturation 92% on room air. GENERAL: Elderly man, in no acute distress. Awake and alert. LUNGS: Clear to auscultation bilaterally. No wheezes or crackles. CARDIOVASCULAR: Normal rate, regular rhythm. No murmur. Normal S1, S2. ABDOMEN: Soft, nontender. EXTREMITIES: No edema. CARDAIC MEDICATIONS: Fludrocortisone 0.1 mg p.o. daily, aspirin 81 mg p.o. daily. LABORATORY DATA: None today. TELEMETRY: Normal sinus rhythm. IMPRESSION: 1. Syncope, suspect orthostatic hypotension. 2. Question possible seizure. 3. Alzheimer's dementia. RECOMMENDATIONS: Continue current cardiac medications. Monitor the patient on telemetry. No arrhythmias have been found. Recommend outpatient telemetry monitoring for further evaluation. Continue Florinef. Recommend compression stockings. We may need to tolerate supine hypertension for adequate blood pressure while the patient is standing. The patient is undergoing neurology evaluation for possible seizure. No hemodynamically significant stenosis was found on carotid Doppler and echocardiogram. There is a normal LV size with pseudonormal LV filling. There was moderate aortic regurgitation. No other significant valvular abnormalities were documented. Thank you for this consult. We will continue to follow. Helene Natarajan MD ABS/MODL /[id number]
--- NOTE | 2019-01-17 07:35 | Discharge Summary ---
FINAL DISCHARGE DIAGNOSES: 1. Syncopal episode, multifactorial, likely due to orthostatic hypotension. 2. History of orthostatic hypotension, but currently blood pressure is stable. 3. Alzheimer's dementia. 4. Generalized weakness, and medically debilitated. CONSULTANTS: Neurology and Cardiology. PHYSICAL EXAMINATION: VITAL SIGNS: Temperature is 97.9, pulse 73, respiratory rate is 18, blood pressure is 162/82, pulse ox 96% on room air. LAB FINDINGS: Showed a white count of hemoglobin 12.7, hematocrit of 38, platelets of 199. Coagulation, PT 14, INR 1, PTT 32. Chemistry, sodium 143, potassium 3.5, chloride 110, bicarb 24, anion gap of 11, BUN 15, creatinine is 0.91, calcium 7.3. Vitamin B12 greater than 2000 total bilirubin is 0.7, ALT of 16, AST is 30. Troponins were negative. BNP 126. Urinalysis was negative. Urine culture was negative. IMAGING STUDIES: Chest x-ray showed some mild interstitial edema. CT cervical spine, no acute osseous abnormality, multilevel spondylosis advanced to C5-C6 and C6-C7. No evidence of any acute findings. CT brain, no acute intracranial abnormality. Carotid ultrasound found to be negative for any stenosis. A 2D echo was found to be normal and EF of 60%. EEG was found to be normal, so no evidence of seizures. MRI of the brain showed no acute abnormalities. Showed some mild chronic microvascular ischemic changes. HOSPITAL COURSE: This is an 83-year-old male, who came in after having a syncopal episode that occurred at home. The patient was admitted for further evaluation. Neurology was consulted, in which EEG and MRI was performed and found to be negative. The patient was then cleared by Neurology standpoint. No further neurological workup is needed. Cardiology was consulted as well and the patient was on cardiac telemetry. Cardiac enzymes were found to be negative. No cardiac telemetry. EKG showed no acute findings. A 2D echo was found to be normal range as well as a carotid ultrasound found to be normal. All imaging studies were found to be negative as well. It was thought the possibility that the patient likely has orthostatic hypotension leading to a possible syncopal episode. The patient is currently doing well with no complaints and has been cleared by both consultants, Neurology and Cardiology for discharge home. I discussed plan of care with the patient and his son at bedside and they verbalized understanding. On the day of discharge, vital signs stable, labs being stable. The patient seen, evaluated, and examined thoroughly on the day of discharge. No other complaints. The patient verbalized understanding and agreed with plan of care. Followup appointment as an outpatient with the primary care physician in MEDICATIONS: See med reconciliation form. DISPOSITION: To home. CONDITION: Stable. DIET: Heart healthy. In any event of new or worsening symptoms, the patient is advised to come back to the ED for further evaluation. Discharge summary took greater than 35 minutes. MD KATELYNN Brasher/MODL /[id number]
== END 2019-01-16 16:15 | disposition home or self-care (01) ==
LOC: ER 16:59 → INTOOBSV 20:55 → ERHOLD 20:55 → MED/SURG 21:59
PROVIDERS: ADMIT Internal Medicine; ATTEND Internal Medicine
DX: R55 Syncope and collapse (principal); G30.9 Alzheimer's disease, unspecified; F02.80 Dementia in other diseases classified elsewhere, unspecified severity, without behavioral disturbance, psychotic disturbance, mood disturbance, and anxiety; Z88.5 Allergy status to narcotic agent; I95.9 Hypotension, unspecified; R53.1 Weakness; R53.81 Other malaise
CPT/HCPCS: 36415 ×3; 70450; 70551; 71045; 72125; 80048 ×2; 80053; 81001; 82550; 82553; 82607; 83036; 83880; 84443 ×2; 84484; 85025 ×3; 85610; 85730; 87086; 93005; 93306; 93880; 95816; 97116 ×2; 97139; 97162; G0378 ×4; J1650 ×2; J7030 ×2

== ENCOUNTER 2021-01-11 15:29 | Emergency (ER) | payer MEDICARE, OTHER ==
[~2021-01-11 15:29] MED LIST changes: +ASPIR 8181 MG PO; +CENTRUM COMPLE1 EACH PO; +EXELON1 EAC1 TD; +FLUDROCORTISON0.1 MG PO; +FOLIC ACID1 MG PO; +METAMUCIL FIBE3.4 GM PO; +NAMENDA10 MG PO; +POTASSIUM CHLO10 ME1 PO
[2021-01-11] MEDS ORDERED: SALONPAS1 EACH TD (16:04)
[2021-01-11 17:16] VITALS: BP 145/62
== END 2021-01-11 17:28 | disposition home or self-care (01) ==
LOC: ER 15:41
DX: S00.83XA Contusion of other part of head, initial encounter (principal); W06.XXXA Fall from bed, initial encounter; Y93.84 Activity, sleeping; Y92.003 Bedroom of unspecified non-institutional (private) residence as the place of occurrence of the external cause; I10 Essential (primary) hypertension; F03.90 Unspecified dementia, unspecified severity, without behavioral disturbance, psychotic disturbance, mood disturbance, and anxiety
CPT/HCPCS: 70450; 72125; 99283